=== PATIENT | female | born 1960 | race Caucasian/White ===

== ENCOUNTER 2017-09-24 16:47 | Emergency (ER) | payer BC, OTHER ==
[~2017-09-24] VITALS: Ht 157.5 cm; Wt 81.6 kg
[~2017-09-24 16:47] MED LIST: OLME40TA12 PO
--- NOTE | 2017-09-24 16:58 | NUR ---
PATIENT BROUGHT IN C/O CHEST PAIN. EKG DONE AND IV STARTED. INFORMED DOCTOR PEDRO.
[2017-09-24] MEDS ORDERED: PANTOPRAZOLE SODIUM 40 MG VIAL ONE (17:09)
[2017-09-24] MEDS ORDERED: NITROGLYCERIN 0.4 MG/TAB BOTTLE SL ONE ×2 (17:09→17:15)
[2017-09-24] MEDS ORDERED: ONDANSETRON 4 MG/2 ML VIAL ONE (17:09)
[2017-09-24 17:10] LABS: BASOPHILS % (AUTO) 0.4 % (0.0-2.0); EOSINOPHILS # (AUTO) 0.1 K/uL (0.0-0.7); EOSINOPHILS % (AUTO) 0.6 % (0.0-7.0); HEMATOCRIT 42.8 % (31.2-41.9); HEMOGLOBIN 14.3 g/dL (10.9-14.3); LYMPHOCYTES # (AUTO) 1.4 K/uL (20.0-40.0); LYMPHOCYTES % (AUTO) 12.4 % (20.5-51.5); MEAN CORPUSCULAR HEMOGLOBIN 29.6 uug (24.7-32.8); MEAN CORPUSCULAR HGB CONC 33 g/dL (32.3-35.6); MEAN CORPUSCULAR VOLUME 88.8 fL (75.5-95.3); MONOCYTES # (AUTO) 0.3 K/uL (2.0-10.0); MONOCYTES % (AUTO) 2.8 % (0.0-11.0); NEUTROPHILS # (AUTO) 9.7 K/uL (1.8-8.9); NEUTROPHILS % (AUTO) 83.8 % (38.5-71.5); PLATELET COUNT (AUTO) 275 K/uL (179-408); RED BLOOD CELL COUNT(AUTO) 4.82 MIL/uL (3.63-4.92); WHITE BLOOD COUNT (AUTO) 11.6 K/uL (3.8-11.8)
[2017-09-24] MEDS ORDERED: [UNRECOGNIZED DRUG - CODE] PO (17:14)
[2017-09-24] MEDS ORDERED: OLME1TAB16 PO (17:14)
[2017-09-24] MEDS ORDERED: PARO25TA16 PO (17:14)
[2017-09-24] MEDS ORDERED: ONDANSETRON 4 MG/2 ML VIAL IV ONE (17:15)
[2017-09-24] MEDS ORDERED: PANTOPRAZOLE SODIUM 40 MG VIAL IV ONE (17:15)
[2017-09-24] MEDS ORDERED: NORT25CA5 PO (17:16)
--- NOTE | 2017-09-24 17:16 | NUR ---
PATIENT IS DIAPHORETIC AT THIS TIME
[2017-09-24 17:23] LABS: CREATININE 0.8 mg/dL (0.6-1.3); POTASSIUM 3.4 mmol/L (3.5-5.1)
[2017-09-24 17:34] LABS: BILIRUBIN,DIRECT 0.1 mg/dL (0.0-0.2); BILIRUBIN,TOTAL 0.4 mg/dL (0.2-1.0); TOTAL PROTEIN, SERUM 7.8 g/dL (6.4-8.2)
--- NOTE | 2017-09-24 17:37 | NUR ---
At this time pt refused to have Ct w/ contrast but agreed to have Ct w/o contrast. Dr Herrera aware and spoke to Pt.
--- NOTE | 2017-09-24 18:10 | NUR ---
PATIENT CAME BACK FROM CT SCAN. PATIENT MUCH MORE CALM. NOT DIAPHORETIC ANY MORE. NO MORE COMPLAINTS OF PAIN.
--- NOTE | 2017-09-24 19:01 | NUR ---
SBAR GIVEN TO
--- NOTE | 2017-09-24 20:36 | NUR ---
Patient discharged to home in stable conditon. Written and verbal after care instructions given. Patient verbalizes understanding of instructions. Patient ambulated out of ER with steady gait, no acute signs of distress, VSS, all belongings taken, IV site discontinued.
[2017-09-24 20:39] VITALS: BP 126/76
--- NOTE | 2017-09-25 09:29 | NUR ---
tried the number that was originally provided by the patient and it was disconnected. I called her sister and told her I needed to speak with the patient and was provided a different number. Left a voice message telling her that I needed to speak with her. did not give any details, but the reason for my call is because I want to make sure that she was told that the CT suggested a possible neoplasm and she needs to followup
--- NOTE | 2017-09-25 12:35 | NUR ---
DISCUSSED WITH THE PATIENT THE CT FINDINGS. SHE IS COMING TO [employer] A CD COPY TO BRING TO HER DOCTOR
== END 2017-09-24 20:39 | disposition home or self-care (01) ==
LOC: ER 16:49
DX: R07.89 Other chest pain (principal); R10.9 Unspecified abdominal pain; I10 Essential (primary) hypertension; K21.9 Gastro-esophageal reflux disease without esophagitis; Z79.899 Other long term (current) drug therapy; Z90.49 Acquired absence of other specified parts of digestive tract
CPT/HCPCS: 36415; 70030-TC; 71045; 71250; 83690; 85025; 85730; 93005; A4663; C9113; J2405; J7030